=== PATIENT | male | born 1990 | race Caucasian/White ===

== ENCOUNTER 2019-07-31 16:55 | Emergency (ER) | payer SELFPAY ==
[2019-07-31 17:16] VITALS: BP 121/80
--- NOTE | 2019-07-31 17:48 | UC ---
Hand/Wrist HPI - HPI Summary HPI Summary: 29-year-old male comes in with a chief complaint of bilateral index finger pain. Started the left several days ago. Pain is primarily in the radial aspect of the index finger. It also goes into the second MCP. In the last days same type of pain started on the right hand in the same area. Patient is a mechanic field service. Pain typically starts right after washing his hands or he comes in contact with cold or heat. Pain is intermittent and quite often it does not bother him all day long and just starts in the evening. He has pain with range of motion and with washing it. Is wondering if it was a skin problem and is tried moisturizers without any relief. - History Of Current Complaint Chief Complaint: UCUpperExtremity Stated Complaint: BILATERAL HAND SWELLING Time Seen by Provider: 07/31/19 17:21 Pain Intensity: 10 - Allergies/Home Medications Allergies/Adverse Reactions: Allergies Allergy/AdvReac Type Severity Reaction Status Date / Time No Known Allergies Allergy Verified 07/31/19 17:08 PMH/Surg Hx/FS Hx/Imm Hx Previously Healthy: Yes - Surgical History Surgical History: Yes Surgery Procedure, Year, and Place: HERNIA REPAIR - Social History Alcohol Use: None Substance Use Type: None Smoking Status (MU): Never Smoked Tobacco Type: Smokeless Tobacco Amount Used/How Often: 1 can/wk Length of Time of Smoking/Using Tobacco: 10 yrs Review of Systems All Other Systems Reviewed And Are Negative: Yes Constitutional: Positive: Negative Skin: Positive: Other - SEE HPI Eyes: Positive: Negative ENT: Positive: Negative Respiratory: Positive: Negative Cardiovascular: Positive: Negative Gastrointestinal: Positive: Negative Motor: Positive: Negative Neurovascular: Positive: Negative Musculoskeletal: Positive: Other: - SEE HPI Neurological: Positive: Negative Psychological: Positive: Negative Is Patient Immunocompromised?: No Physical Exam Triage Information Reviewed: Yes Appearance: Well-Appearing, No Pain Distress, Well-Nourished Vital Signs: Initial Vital Signs Temp 99.7 F 07/31/19 17:09 Pulse 93 07/31/19 17:09 Resp 16 07/31/19 17:09 BP 121/80 07/31/19 17:09 Pulse Ox 100 07/31/19 17:09 Vital Signs Reviewed: Yes Eye Exam: Normal Eyes: Positive: Conjunctiva Clear Neck: Positive: Supple Respiratory: Positive: No respiratory distress Musculoskeletal: Positive: Strength Intact, ROM Intact, Other: - There is some erythema on both index fingers on the radial aspects. Fingers have full range of motion normal capillary refill no sensation deficits. Patient localizes the pain on the radial aspect of the index fingers but also into the second MCPs. Strength is normal. Wrist is nontender. Normal radial pulses. Wrist has full range of motion full-strength. Neurological: Positive: Alert Psychological: Positive: Age Appropriate Behavior Skin: Positive: Other - Erythema on the radial aspect both index fingers. Normal capillary refill. No sensation deficit. Hand/Wrist Course/Dx - Course Course Of Treatment: Pump Installation And Servicer: Katy Campo S, ([id number]) Motor Teacher: BALAJI (NUANCE) Report Date: 07/31/2019 17:41:00 Report Status: Final Start of Report Content Patient Name: JACINTO HOSKINS Medical Record#: [id number] Ordering Physician: Abel Thomas MD Acct.#: [id number] : Age: 29 Sex: M Location: [facility] Exam Date: 07/31/19 174 ADM Status: REG ER Order Information: HANDS BILATERAL Accession Number: [id number] CPT: 25934 Indication: Second metacarpal and index finger pain. 4 views of left hand and 4 views of the right hand are reviewed. The left hand demonstrates no fracture or dislocation. No other bone or joint abnormality is identified. 4 views of the right hand demonstrates no fracture or dislocation. No other bone or joint abnormality is identified. IMPRESSION: Unremarkable bilateral hands. < Electronically signed by Katy Campo MD in OV> 07/31/191821 Dictated By: Katy Campo MD Dictated Date/Time: 07/31/191817 Transcribed Date/Time: 07/31/191817 Copy to: CC:No Primary Care Phys,NOPCP ; Abel Thomas MD Imaging - [facility] Imaging - [facility] Imaging - [facility] [address] [address] ph ([phone]) ph ([phone]) ph ([phone]) ===== End of Report Content I discussed the x-rays with the patient and his sister. By the history of the pain not bother him all day long but then starting to bother him in the evening after washing his hands different possibilities include some kind of contact dermatitis or a neuropathic pain. We'll treat with a Medrol Dosepak. Also low potency topical corticosteroid. Patient started taking ibuprofen. Follow-up with dermatology. - Differential Dx/Diagnosis Provider Diagnosis: Bilateral hand pain, Rash of hands Discharge ED - Sign-Out/Discharge Documenting (check all that apply): Patient Departure All imaging exams completed and their final reports reviewed: No - Discharge Plan Condition: Stable Disposition: HOME Prescriptions: Desonide 0.005% OINT(NF) 1 applic TOPICAL TID #1 tube methylPREDNISolone [Medrol Dosepak 4 MG*] 0 mg PO .SEE KATERINA INSTRUCTION #1 katerina Patient Education Materials: Acute Rash (ED), Arthralgia (ED) Referrals: Shima Garber [Medical Doctor] - Osmin Cuevas MD [Medical Doctor] - Additional Instructions: FOLLOW UP WITH DERMATOLOGY IF NOT COMPLETELY IMPROVED. GET RECHECKED SOONER IF YOUR CONDITION WORSENS OR ANY QUESTIONS OR CONCERNS. - Billing Disposition and Condition Condition: STABLE Disposition: Home
--- NOTE | 2019-08-01 10:52 | UC ---
- Progress Note Progress Note: . Course/Dx - Diagnoses Provider Diagnoses: Bilateral hand pain, Rash of hands Discharge ED - Sign-Out/Discharge Documenting (check all that apply): Patient Departure All imaging exams completed and their final reports reviewed: Yes - Discharge Plan Condition: Stable Disposition: HOME Prescriptions: Desonide 0.005% OINT(NF) 1 applic TOPICAL TID #1 tube methylPREDNISolone [Medrol Dosepak 4 MG*] 0 mg PO .SEE KATERINA INSTRUCTION #1 katerina Patient Education Materials: Acute Rash (ED), Arthralgia (ED) Referrals: Osmin Cuevas MD [Medical Doctor] - Shima Garber [Medical Doctor] - Additional Instructions: FOLLOW UP WITH DERMATOLOGY IF NOT COMPLETELY IMPROVED. GET RECHECKED SOONER IF YOUR CONDITION WORSENS OR ANY QUESTIONS OR CONCERNS. - Billing Disposition and Condition Condition: STABLE Disposition: Home
== END 2019-07-31 18:51 | disposition home or self-care (01) ==
LOC: UCCORT 16:55
DX: M79.642 Pain in left hand (principal); M79.641 Pain in right hand; R21 Rash and other nonspecific skin eruption; F17.220 Nicotine dependence, chewing tobacco, uncomplicated
CPT/HCPCS: 99202; G0463

== ENCOUNTER 2019-12-31 08:43 | Emergency (ER) | payer OTHER ==
[2019-12-31 09:06] VITALS: BP 132/92
[2019-12-31 10:52] LABS: Influenza A Molecular Negative (Negative); Influenza B Molecular Negative (Negative)
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
== END 2019-12-31 11:18 | disposition home or self-care (01) ==
LOC: UCCORT 08:43
DX: M62.838 Other muscle spasm (principal); R19.7 Diarrhea, unspecified; R05 Cough; R09.81 Nasal congestion; J02.9 Acute pharyngitis, unspecified; R51 Headache; M79.10 Myalgia, unspecified site; Z88.2 Allergy status to sulfonamides; Z88.1 Allergy status to other antibiotic agents; V89.2XXA Person injured in unspecified motor-vehicle accident, traffic, initial encounter; Y92.9 Unspecified place or not applicable
CPT/HCPCS: 72050; 99212; G0463